=== PATIENT | female | born 2000 | race Caucasian/White ===

== ENCOUNTER 2023-02-09 19:49 | Emergency (ER) | payer OTHER | END 2023-02-09 21:00 | disposition home or self-care (01) | LOC: NAV ERS 19:49 | DX: S52.121A Displaced fracture of head of right radius, initial encounter for closed fracture (principal); W00.0XXA Fall on same level due to ice and snow, initial encounter; Y99.0 Civilian activity done for income or pay | CPT/HCPCS: 29105 ==